=== PATIENT | female | born 1980 | race Caucasian/White ===

== ENCOUNTER 2023-01-19 14:45 | Emergency (ER) | payer MEDICAID ==
[~2023-01-19] VITALS: Ht 162.6 cm; Wt 95.3 kg
[2023-01-19 15:06] VITALS: O2SAT 100
[2023-01-19] MEDS ORDERED: MELO-104 MT (16:45)
[2023-01-19 17:20] VITALS: BP 158/98; PULSE 98; RESP 18; TEMP 98.1
== END 2023-01-19 17:22 | disposition home or self-care (01) ==
LOC: ER 14:56
DX: M79.642 Pain in left hand (principal); E11.9 Type 2 diabetes mellitus without complications; Z88.0 Allergy status to penicillin
CPT/HCPCS: 73130; 81025; 99283

== ENCOUNTER 2023-04-14 18:41 | Emergency (ER) | payer MEDICAID, OTHER ==
[~2023-04-14] VITALS: Ht 165.1 cm; Wt 77.0 kg
[~2023-04-14 18:41] MED LIST: MELO-104 MT
[2023-04-14 18:55] VITALS: BP 178/98; PULSE 116; RESP 20; TEMP 98.8; O2SAT 99
[2023-04-14] MEDS ORDERED: CLIN-194 MT (20:27)
[2023-04-14] MEDS ORDERED: IBUP-2030 MT (20:27)
[2023-04-14] MEDS ORDERED: KETOROLAC 30MG/ML VIAL IM STA (20:34)
== END 2023-04-15 00:33 | disposition home or self-care (01) ==
LOC: ER 18:41
DX: J34.0 Abscess, furuncle and carbuncle of nose (principal); E11.9 Type 2 diabetes mellitus without complications
CPT/HCPCS: 99281; 99283